=== PATIENT | female | born 1960 | race Caucasian/White ===

== ENCOUNTER 2016-10-17 01:04 | Emergency (ER) | payer OTHER ==
[~2016-10-17] VITALS: Ht 152.4 cm; Wt 98.6 kg
[~2016-10-17 01:04] MED LIST: CHOL400C9 PO; GABA-502 PO; GLIP5TAB26 PO; LIP40 PO; LISI30TA5 PO; METF500T4 PO; OMEP40CA36 PO; SERT50TA9 PO; [UNRECOGNIZED DRUG - CODE] SL; [UNRECOGNIZED DRUG - REMARK]
[2016-10-17 01:07] VITALS: BP 132/71; PULSE 92; RESP 24; O2SAT 96
--- NOTE | 2016-10-17 01:14 | ED.REPORT ---
HPI-Chest Pain 40 and Over Date of Service Oct 17, 2016 ED Provider: Marco Selby MD A 56 year old female with a history of hypertension, hyperlipidemia and diabetes is brought to the ED by EMS complaining of chest pain. The pt ate an unusual amount of spicy food for dinner at 20:00 and began experiencing sharp, burning chest discomfort at 21:00 that radiated to her back. She took Rolaids without relief. The pt has experienced similar symptoms within the last year with an extensive negative cardiac workup, including a negative MIBI stress test. Nursing Notes Stated Complaint: CHEST DISCOMFORT Chief Complaint: Chest Pain Nursing Notes Reviewed: Yes Allergies: Coded Allergies: acetaminophen (Verified Allergy, Intermediate, rash, nausea, 09/06/13) nifedipine (Verified Allergy, Intermediate, rash, 09/06/13) oxycodone (Verified Allergy, Intermediate, rash, nausea, 09/06/13) hydrochlorothiazide (Verified Allergy, Unknown, 09/06/13) Scheduled ([refridegerated rx]) WEEKLY Atorvastatin (Lipitor) 40 Mg Tablet 40 MG PO DAILY Cholecalciferol (Vitamin D3) (Vitamin D3) 400 Unit Capsule 400 UNIT PO DAILY Cyanocobalamin (Vitamin B-12) (B-12) 1,000 Mcg Tablet.er 1,000 MCG SL DAILY Gabapentin (Gabapentin) 300 Mg Capsule 300 MG PO TID Glipizide ER (Glipizide ER) 5 Mg Tab.er.24 10 MG PO DAILY Lisinopril (Lisinopril) 30 Mg Tablet 30 MG PO HS Magnesium Chloride (Slow-Mag) 64 Mg Tablet 64 MG PO BID Metformin (Metformin) 500 Mg Tablet 1,000 MG PO BID Omeprazole (Omeprazole) 40 Mg Capsule.dr 40 MG PO DAILYAC Omeprazole (Omeprazole) 20 Mg Tablet.dr 20 MG PO BID Sertraline HCl (Sertraline) 50 Mg Tablet 50 MG PO DAILY General Time Seen by MD: 01:13 Chief Complaint Chest pain Hx Obtained From: Patient Sudden in Onset?: Yes Onset Occurred: 5 - 8 hours ago Symptom Duration: Since onset Recent Healthcare: No recent hospitalization, Recent doctor visit Similar Sx Previous: Yes Risk Factors )( CAD Risk Stratification Diabetes mellitus Family history Hyperlipidemia Hypertension Risk factors reviewed )( PE Risk Stratification Risk factors reviewed, No risk factors Past Medical History Past Medical History Hypertension High cholesterol Diabetes Mellitus Morbid obesity Past Surgical History Family History Noncontributory Smoking History Never Smoker Social History Drug Use: Denies drug use Other Social History: Lives with children Ambulatory Status Independent Review of Systems Constitutional: Denies: Fever Respiratory: Denies: Shortness of breath Cardiovascular: Reports: Chest pain GI: Denies: Abdominal pain, Nausea, Vomiting Musculoskeletal: Reports: Back pain Skin: Denies Rash Complete sys rev & neg: except as marked. Physical Exam Initial Vital Signs Vital Signs (First) Date Time Temp Pulse Resp B/P Pulse Ox O2 Delivery O2 Flow Rate FiO2 10/17/16 01:07 36.8 92 24 132/71 96 Room Air Initial VS: Reviewed General/Constitutional: Awake, Alert Appearance / Presentation: Positive: Obese Respiratory / Chest: Atraumatic, Breath sounds NL, Breath sounds = bilat, No respiratory distress Cardiovascular: Heart rate NL, Regular rhythm, Heart sounds NL Abdomen: Atraumatic, Soft, Non-tender Neck: Atraumatic, Supple, Full range of motion Back: Atraumatic, Full range of motion Lower Extremity / Pelvis / MS: Atraumatic, Full range of motion Skin: Atraumatic, Color NL, No rash, Warm, Dry Neurologic: Oriented X3, Speech NL, No motor deficits, No sensory deficits Psychiatric: Affect NL, Mood NL Head / Eyes: Atraumatic, Normocephalic, PERRL, EOMI ENT: Atraumatic, Airway patent, Mucous membranes moist Upper Extremity / MS: Atraumatic, Full range of motion Interpretation & Diagnostics Lab Results Interpretation Result Diagram: 10/17/16 0158 10/17/16 0158 Test 10/17/16 01:58 10/17/16 03:55 White Blood Count 8.5th/mm3 (3.8-10.1) Red Blood Count 3.83mil/mm3 (3.90-5.20) Hemoglobin 11.1g/dL (12.0-15.6) Hematocrit 35.1% (35.0-46.0) Mean Corpuscular Volume 91.6fL (81-100) Mean Corpuscular Hemoglobin 29.0pg (27.0-35.0) Mean Corpuscular Hemoglobin Concent 31.6% (32.0-37.0) Red Cell Distribution Width 13.1% (12.3-15.4) Platelet Count 192bil/L (150-400) Neutrophils (%) (Auto) 62.1% (40-74) Lymphocytes (%) (Auto) 29.5% (14-46) Monocytes (%) (Auto) 5.7% (4-12) Eosinophils (%) (Auto) 2.1% (0-5) Basophils (%) (Auto) 0.2% (0-3) Prothrombin Time 8.8sec (8.1-12.5) Prothromb Time International Ratio 0.83ratio Activated Partial Thromboplast Time 26.4sec (22.8-33.0) Sodium Level 142mEq/L (134-144) Potassium Level 4.1mEq/L (3.5-5.2) Chloride Level 103mEq/L (97-108) Carbon Dioxide Level 21mmol/L (18-29) Blood Urea Nitrogen 20mg/dL (6-24) Creatinine 0.88mg/dL (0.57-1.00) Estimat Glomerular Filtration Rate 95mL/min (>59) Glucose Level 221mg/dL (60-99) Calcium Level 9.1mg/dL (8.5-10.1) Magnesium Level 1.4mg/dL (1.6-2.6) Total Bilirubin 0.2mg/dL (0.0-1.2) Aspartate Amino Transf (AST/SGOT) 20U/L (0-50) Alanine Aminotransferase (ALT/SGPT) 26U/L (0-32) Alkaline Phosphatase 61U/L (25-150) Pro-B-Type Natriuretic Peptide 84pg/mL (0-287) Total Protein 6.9g/dL (6.4-8.4) Albumin 3.8g/dL (3.4-5.0) Hold [place] Top Tube Received (Received) Troponin T 0.010ug/L (0.0-0.011) ECG Interpretation ECG Interpretation: normal sinus rhythm with a rate of 90 ventricular premature complexes Time: 01:08 Interpreted by: ED physician ECG Interpretation: normal sinus rhythm with a rate of 89 ventricular premature complex Time: 03:20 Interpreted by: ED physician X-Ray Chest Interpretation Chest Xray Interpretation: no acute findings Interpretation / Wet Read by: Wet read ED physician Re-Eval/Medical Decision Med Decision/Clinical Course 56-year-old presents with sharp chest pain radiates through to her back without other radiation without other associated symptoms than nausea. Onset was after overindulgence in spicy food or restaurant. Enzymes are negative 2. In the setting of a negative MIBI a year ago or so, she is at very low risk for coronary event. This is clinically consistent with esophagitis and reflux. Improved here with fluids and proton pump inhibitor. Hypomagnesemia noted and 2 g given IV additionally. Home with Slow-Mag. Home also with omeprazole and Zofran. Follow up with PCP. Source of Hx: Old records Time of Eval: 04:10 Patient Status: Condition improved Re-Evaluation/Progress Note: Pt rechecked, who is sleeping but easily woken. She is feeling significantly better. The diagnosis and plan for discharge following treatment are discussed. The pt understands and agrees with the plan. All questions are addressed at this time. Counseled Regarding: Diagnosis, Lab results, Need for follow-up, When/why to return to ED Discharge & Departure Primary Impression: Non-cardiac chest pain Additional Impressions: Hypomagnesemia Gastro-esophageal reflux Disposition: Home Discharge Condition All VS Reviewed: Yes Condition: Stable Patient Instructions: Hypomagnesemia (ED), Noncardiac Chest Pain (ED) Additional Instructions: With your negative stress test in the past year, and your evaluation tonight, your risk for cardiac source for this pain is extremely low. It is much more likely this is esophageal in character. Again omeprazole twice daily for ten days and then daily for the rest of the month. You were also low on magnesium, and could do with supplement for at least a month. Begin Slow-Mag one tablet twice daily with some food. Follow-up with your doctor in the office. Return if any immediate issues. Referrals: Vandana Myles DO (PCP) Scribe Attestation Portions of this note were transcribed by Eleuterio Haines. I, Dr. Selby personally performed the history, physical exam and medical decision-making; I reviewed and confirmed the accuracy of the information in the transcribed note. copies to: Vandana Myles Christopher W MD Oct 17, 2016 01:14 ELEUTERIO HAINES Oct 17, 2016 01:22
[2016-10-17] MEDS ORDERED: Pantoprazole 40 mg ER24 Tablet PO ONE (01:20)
[2016-10-17] MEDS ORDERED: LidocaineVisc 2%:Antacid 1:1 10 mL Syringe PO SCH (01:20)
[2016-10-17 02:19] LABS: BASOPHILS % (AUTO) 0.2 % (0-3); EOSINOPHILS % (AUTO) 2.1 % (0-5); MONOCYTES % (AUTO) 5.7 % (4-12); Mean Corpuscular Volume 91.6 fL (81-100); NEUTROPHILS % (AUTO) 62.1 % (40-74); Platelet Count 192 bil/L (150-400)
[2016-10-17 02:34] LABS: INR 0.83 ratio
[2016-10-17 02:44] LABS: TROPONIN T 0.01 ug/L (0.0-0.011)
[2016-10-17 02:51] LABS: Magnesium 1.4 mg/dL (1.6-2.6)
[2016-10-17] MEDS ORDERED: Magnesium Sulf 2 Gm/50mL Water 2 GM in IV Premix 1 EACH IV ONE (03:50)
[2016-10-17 04:23] VITALS: BP 129/66; PULSE 85; RESP 19; O2SAT 95
[2016-10-17] MEDS ORDERED: OMEP20TA86 PO (05:31)
[2016-10-17] MEDS ORDERED: SLO64 PO (05:31)
[2016-10-17 05:38] VITALS: BP 111/62; PULSE 86; RESP 20; O2SAT 95
--- NOTE | 2016-10-17 15:01 | DRSVH ---
PROCEDURE: X-RAY CHEST ONE VIEW, PORTABLE ([id number]) INDICATIONS: CHEST PAIN TECHNIQUE: One view of the chest was acquired. COMPARISON: [facility], , CHEST 1VW (PORTABLE), 11/11/2011, 22:47. FINDINGS: Surgical changes and devices: None. Lungs and pleura: No pleural effusions or pneumothorax. Lungs are clear. Mediastinum: Mediastinal contours appear normal. Heart size is enlarged. Bones and chest wall: No suspicious bony lesions. Overlying soft tissues appear unremarkable. IMPRESSION: No acute cardiopulmonary disease. Dictated by: Peewee MEHTA Interpreted: Paradise Olivarez MD on 10/17/2016 at 8:39 Approved by: Paradise Olivarez M.D. on 10/17/2016 at 15:00
== END 2016-10-17 05:34 | disposition home or self-care (01) ==
LOC: SED 01:04
DX: R07.89 Other chest pain (principal); E83.42 Hypomagnesemia; K21.9 Gastro-esophageal reflux disease without esophagitis; I10 Essential (primary) hypertension; E11.9 Type 2 diabetes mellitus without complications; E78.5 Hyperlipidemia, unspecified; Z79.84 Long term (current) use of oral hypoglycemic drugs; Z88.5 Allergy status to narcotic agent; Z88.8 Allergy status to other drugs, medicaments and biological substances